=== PATIENT | male | born 1965 | race Caucasian/White ===

== ENCOUNTER → 2017-03-07 | Outpatient (CLI) | payer OTHER ==
[~2017-03-07] MED LIST: ANUSOL HC 25MG25 MG PR; ASPIRIN 325MG325 MG PO; ATORVASTATIN CA40 MG PO; CLOPIDOGREL75 M2 PO; EFFIENT10 M2 PO; ENDOCET 325 MG-1 TAB PO; GOLYTELY1 PDR PO; JANUVIA50 MG PO; LOSARTAN POTASS1 TAB PO; METFORMIN HYDR750 MG PO; METFORMIN500 MG PO; METOPROLOL SUCC25 M2 PO; SUBOXONE 8 MG-21 FIL SL; TOUJEO300 U/ML SC; TRAMADOL 50MG T1 PAK PO
== END ==
LOC: RT 07:45
DX: R55 Syncope and collapse (principal)

== ENCOUNTER → 2017-03-20 | Outpatient (CLI) | payer OTHER | LOC: RT 12:07 | DX: R00.2 Palpitations (principal); Z86.79 Personal history of other diseases of the circulatory system; Z98.890 Other specified postprocedural states ==

== ENCOUNTER 2017-04-17 07:34 | Day surgery (SDC) | payer OTHER ==
[~2017-04-17] VITALS: Ht 182.9 cm; Wt 95.3 kg
--- NOTE | 2017-04-17 08:50 | Operative Note ---
Upper GI Endoscopy Procedure date: 04/17/17 Date of : 65 Procedure:Upper GI Endoscopy Esophagogastroduodenoscopy with cold biopsies Indications: Mr. Freitas is a 51-year-old gentleman who is here for follow-up surveillance of his Ahn's esophagus. He has had Triny fundoplication twice. This was originally in January 2004 and then again in February 2008. He had upper endoscopy was surveillance and September 2010 and again in September 2014 and has a 6 cm segment of Ahn's esophagus. His reflux is well controlled with PPI therapy. He reports no heartburn, indigestion, bloating, belching, abdominal pain, dyspepsia or dysphagia. The patient has however had coronary artery disease and had coronary stents placed in November 2015 and August 2016. He also has had cardiac ablation and continues to have some intermittent flutter. He also reports some weakness and fatigue. He was unable to prep for his initial colonoscopy in September 2014 and has not had screening. Performing Provider: Beatriz Zhang MD Referring Provider: Ramakrishna Rajan M.D. Sedation: MAC sedation Procedure: Prior to the procedure, a history and physical exam was performed, and patients medications and allergies were reviewed. The risks and benefits of the procedure and the sedation options and risks were discussed with the patient. All questions were answered and informed consent was obtained. The patient was brought to the procedure room. Patient identification and proposed procedure were verified by the physician and the nurse. The patient was placed in a left lateral decubitus position and the scope was passed under direct vision. Throughout the procedure, the patient's blood pressure, pulse, and oxygen saturations were monitored continuously. The endoscope was introduced through the mouth, and advanced to the second part of duodenum. The upper GI endoscopy was accomplished without difficulty. The patient tolerated the procedure well. Findings: The scope was passed directly into the upper esophagus and advanced to the third portion of the duodenum. The post bulbar duodenum and duodenal bulb were normal with normal mucosa and conniventes. The scope was withdrawn through a normal duodenal bulb and pylorus into the stomach. The remainder of the antrum, body and fundus of the stomach were grossly normal. Upon retroflexion there was mostly intact Triny fundoplication with a very small recurrent 1-2 cm hiatal hernia. The endoscope was withdrawn into the esophagus. The diaphragmatic hiatus was at 38 cm, the gastroesophageal junction/top of the gastric folds was at 36- 37 cm. The top of the squamocolumnar junction was at 30 cm. The Ahn's [place] classification is C5M6. Narrowband imaging was utilized and there was no evidence of visible dysplasia or mucosal glandular deformity. Multiple biopsies were obtained. Immediate complications: None EBL (ml): 0 Impression: 1. Long segment Ahn's esophagusPrague classification C5M6 2. Mostly intact fundoplication with small recurrent 1-2 cm hiatal hernia Recommendations: I will follow up the biopsies and recommend repeat surveillance upper endoscopy again in 3-5 years. I would continue PPI therapy. I would recommend initial screening colonoscopy. at 0830
[2017-04-17 10:03] VITALS: BP 117/76
[2017-04-17 10:26] LABS: HEMOGLOBIN 13.7 g/dL (14.1-18.0); LYMPH # 1.5 K/mm3 (0.7-4.5); LYMPH % 28.9 % (10-50)
[2017-04-17 11:15] LABS: BUN 11 mg/dL (7-18)
[2017-04-17 11:25] LABS: GFR (ESTIMATED) 89 ML/MIN (>60)
[2017-04-18 08:40] LABS: Vitamin D, 25-Hydroxy 29.6 ng/mL (30.0-100.0)
[2017-04-18 09:42] LABS: Folate (Folic Acid) 17.9 ng/mL (>3.0)
== END 2017-04-17 09:55 | disposition home or self-care (01) ==
LOC: SDC 07:34
PROVIDERS: Internal Medicine Gastroenterology
PROC: 0DB58ZX Excision of Esophagus, Via Natural or Artificial Opening Endoscopic, Diagnostic (ICD-10-PCS; principal; 2017-04-17 08:30)
DX: K22.70 Barrett's esophagus without dysplasia (principal); K44.9 Diaphragmatic hernia without obstruction or gangrene

== ENCOUNTER 2017-05-20 18:39 | Emergency (ER) | payer OTHER ==
[~2017-05-20] VITALS: Ht 193 cm; Wt 98.0 kg
--- NOTE | 2017-05-20 18:45 | Emergency Room Report ---
History of Present Illness Time Seen by MD Taylor Comment The patient complains of tachycardia. He says he felt like he had an episode of supraventricular tachycardia that started about 45 minutes ago. He says symptoms are now gone except that he feels wiped out. No chest pain. No shortness of breath. He had some nausea. He feels very anxious. He says he has a history of supraventricular tachycardia, coronary artery disease, and anxiety. He has had ablation done in the spring of this year. He currently has a loop recorder that was placed by Dr. Brambila on 04/28/17. He says that it down loads every night at 1 AM while he is in bed. He also has a ansari chain monitor that he takes with him when he leaves the house and is supposed to get a recording if he has an episode. He says he has lost his ansari chain recorder and therefore did not have it with him. He is not sure whether this current episode will download tonight. He says he does not have complete understanding of how his loop recorder works. He requests medication for anxiety. He says that he has a history of addiction to pain medications and is on Suboxone, and likes to be upfront with that. ALLERGIES Coded Allergies: influenza virus vaccine, specific (08/09/16) Home Medications Active Scripts Prasugrel HCl (Effient) 10 MG PO DAILY #30 TAB Prov: 08/09/16 Reported Medications INSULIN GLARGINE,HUM.REC.ANLOG (Joshua Odell) 30 UNITS SC DAILY #4 ASPIRIN (Aspirin 325MG) 162.5 MG PO DAILY BUPRENORPHINE HCL/NALOXONE HCL (Suboxone 8 MG-2 MG Sl Film) 1 FILM SL DAILY #75 LOSARTAN/HYDROCHLOROTHIAZIDE (Losartan-Hctz 50-12.5 MG Tab) 1 TAB PO DAILY #30 TAB Metoprolol Succinate 25 MG PO DAILY #30 History Medical History General CAD? No Angina: Yes TN: No Hypertension? Yes Hyperlipidemia? No CHF? No DVT? No PE? No COPD? No Asthma? No Anemia? No GERD? No Gastric ulcers? No GI Bleed? No Hernia? No Thyroid Problems? No Hypothyroidism? No CVA? No Seizures? No Diabetes? Yes Insulin Dependent: No Insulin Pump: No Home FSBS? Yes Renal Insuffiency? No End Stage Renal Disease? No UTI? No Stones? Yes BPH? No GB Disease: No Nephritic Syndrome? No Asplenia? No Hepatitis? No Sickle Cell Disease? No Arthritis? No Migraines? No Cataracts? No Glaucoma? No MRSA? No HIV? No TB? No Anxiety? Yes Depression? Yes Cancer? No More? No Immunization Hx DT/Tetanus 5-10 Years Ago Flu Refused Pneumonia Refuses Surgical Hx Previous Surgery?Y LITHOTRIPSY KNEE SURGERY X 2 HERNIA REPAIR KIDNEY STONES REMOVED NUMEROUS Family History Family Hx Diabetes Yes CAD Yes Hypertension Yes Hyperlipidemia No Cancer No TB No Social History Alcohol Alcohol: No Review of Systems All Other Systems Reviewed and Negative Respiratory denies shortness of breath Cardiovascular denies chest pain, palpitations Gastrointestinal nausea Psychiatric/Neurological anxiety Physical Exam Vital Signs Vital Signs Date Time Temp Pulse Resp B/P Pulse O2 O2 Flow FiO2 Ox Delivery Rate 05/20 1925 84 18 134/91 97 05/20 1920 18 05/20 1843 98.4 79 24 146/91 96 General Appearance no apparent distress Eye Exam - bilateral eye normal exam, bilateral eye PERRL, bilateral eye EOMI Ear, Nose, Throat hearing grossly normal, normal ENT inspection Neck normal inspection, non-tender, supple, full range of motion Respiratory Status Yes: trachea midline, chest symmetrical, non tender chest. No: respiratory distress. Lung Sounds bilateral: normal breath sounds, lungs clear. Cardiovascular normal exam, regular rate/rhythm, no peripheral edema, no gallop, no JVD, no murmur, no rub, normal peripheral pulses Peripheral Pulses Pulses normal Yes Gastrointestinal normal bowel sounds, normal exam, non tender, soft, no organomegaly Extremities non-tender, normal range of motion, normal inspection Neurologic alert, normal exam, oriented x 3 Mental status normal mood/affect Skin intact, normal color, warm/dry Medical Decision Making LABS/Meds/Orders Pt receiving controlled substance in ED? Yes Jesus was queried for this patient? Yes Comment [id number] rxs. all suboxone. Results/Orders Laboratory Tests 05/20/171841: Sodium 138, Potassium 3.4 L, Chloride 99, Carbon Dioxide 29, BUN 13, Creatinine 1.2, Estimated Creat Clear 101, Estimated GFR (MDRD) 64, Glucose 182 H, Calcium 9.6, Total Bilirubin 0.9, AST 21, ALT 35, Alkaline Phosphatase 118 H, Creatine Kinase 55, CK-MB (CK-2) Rel Index 1.3, CK and CKMB Interp 0.7, Troponin I < 0.02 , Total Protein 8.4 H, Albumin 4.9, Globulin 3.5 H, Albumin/Globulin Ratio 1.4 , WBC 5.4, RBC 5.20, Hgb 15.1, Hct 43.6, MCV 84.0, RDW 12.6, Plt Count 151, MPV 8.3, Gran % 51.9, Gran # 2.8, Lymphocytes % 37.4, Monocytes % 7.4, Eosinophils % 2.3, Basophils % 1.0, Lymphocytes # 2.0, Monocytes # 0.4, Eosinophils # 0.1, Basophils # 0.1, PUBS MCHC 34.6, MCH 29.0 Current Medication Orders Sig/Sade Start time Last Medication Dose Route Stop Time Status Admin Lorazepam 0 .STK-MED ONE 05/20 1917 DC .ROUTE Lorazepam 1 MG ONCE ONE 05/20 1915 DC 05/20 IV 05/20 Sodium Chloride 10 ML PRN PRN 05/20 1845 AC IV 05/21 1842 Orders Procedure Date/time Status ELECTROCARDIOGRAM REQUEST 05/20 1842 Active CHEST-PORTABLE 05/20 1842 Active IV SALINE LOCK 05/20 1842 Active VERTICAL BORING MILL OPERATOR 05/20 1842 Active CBC WITH AUTO DIFF 05/20 1842 Complete CARDIAC ENZYMES 05/20 1842 Complete CHEM 12 PROFILE 05/20 1842 Complete CM/EKG CM/EKG Comments EKG interpreted by Pernell Beltrán MD: Rhythm: sinus Rate: 77 [place]: RIGHT montoya Ectopy: none Conduction: normal ST Segment Changes: none T Wave Changes: none Q Waves: none No evidence of acute ischemia or injury Prior electrocardiagrams reviewed. No change from prior tracings. XRAY/CT/US XRAY/CT/US XRAY chest Comment Chest x-ray interpreted by Pernell Beltrán M.D. No infiltrate, pneumothorax, pleural effusion, or wide mediastinum. Loop recorder present. Progress - 7:15 PM: Case discussed with Dr. Brambila. He informs that the patient report will download his event from today at 1 AM. If the rate was fast enough Dr. Brambila will get a call shortly after that. He states that the patient can see him in his office at 8:30 AM on Monday or Monday and they can interrogate the loop recorder. Departure Departure Disposition DC Home or Self Care(routine) Clinical Impression Primary Impression: Tachycardia Secondary Impressions: Anxiety state Condition STABLE Referrals Ramakrishna Rajan MD (Family) Patient Instructions DI for Anxiety -- Adult, DI for Tachycardia Additional Instructions See Dr. Brambila at 8:30 AM on Monday or Monday to have your loop recorder interrogated. Call Dr. Brambila for further problems. ED Critical Care Critical Care No at [id number]
[2017-05-20 18:55] LABS: LYMPH % 37.4 % (10-50)
--- OUTSIDE RECORDS SUMMARY | 2017-05-20 19:18 | External Medical Summary Rpt | CCD ---
Author Author , WENDY NGUYEN Address Unknown Phone [email or web address] Purpose Continuity of Care Document - 08-22-2016 through 2016 Problems Code Diagnosis DOS Provider Status Z95.5 PRESENCE OF 08-22-2016 CORONARY ANGIOPLASTY IMPLANT AND GRAFT I47.1 SUPRAVENTRI CULAR TACHYCARDIA K13.79 OTHER LESIONS OF ORAL MUCOSA N23 UNSPECIFIED RENAL COLIC R07.9 CHEST PAIN, UNSPECIFIED T88.7XXA UNSP ADVERSE EFFECT OF DRUG OR MEDICAMENT, INIT ENCNTR Results Labs Lab Lab Date Result Refere Interp Status Commen Order Detail nces retati t Range on CBC w auto diff (04-17-2017 10:03) Automat 2 = 0.1 0-0.2 complet ed 017 K/MM3 ed blood 10:03 basophi l count (count/ vo Baso % = 0.9 % 0.1-2.0 complet 017 ed 10:03 Automat 2 = 0.1 0.0-0.4 complet ed 017 K/mm3 ed blood 10:03 eosinop hil count Automat = 2.7 % 0.1-12. complet ed 017 0 ed blood 10:03 eosinop hils/10 0 leukocy t Blood = 3.0 1.3-8.0 complet granulo 017 K/mm3 ed cytes 10:03 automat ed count (numb Granulo = 59.3 37.0-80 complet cyte 017 % .0 ed percent 10:03 age Blood = 41.1 42.0-52 complet hematoc 017 % .0 ed rit 10:03 (volume fractio n) Blood = 13.7 14.1-18 complet hemoglo 017 g/dL .0 ed bin 10:03 measure ment (mass/v olum Absolut = 1.5 0.7-4.5 complet e 017 K/mm3 ed lymphoc 10:03 yte count Lymphoc = 28.9 10-50 complet yte 017 % ed count, 10:03 blood, automat ed Mean = 28.5 27-31.2 complet corpusc 017 pg ed ular 10:03 hemoglo bin (MCH) determ Automat = 33.3 31.8-35 complet ed 017 g/dl .4 ed erythro 10:03 cyte mean corpusc ular h Automat = 85.4 82.2-97 complet ed 017 fl .8 ed erythro 10:03 cyte mean corpusc ular v Absolut = 0.4 0.1-1.0 complet e 017 K/mm3 ed monocyt 10:03 e count Loup % = 8.2 % 1.7-9.3 complet 017 ed 10:03 Automat = 8.0 7.4-10. complet ed 017 fl 4 ed blood 10:03 platele t mean volume scottie Blood = 155 142-424 complet platele 017 K/mm3 ed t count 10:03 Red = 4.81 4.6-6.2 complet blood 017 M/mm3 ed cell 10:03 count Automat = 12.9 11.5-17 complet ed 017 % .5 ed erythro 10:03 cyte distrib ution width Blood = 5.1 4.8-10. complet leukocy 017 K/MM3 8 ed edmundo 10:03 count (number /volume ) Comprehensive metabolic panel (04-17-2017 10:03) Serum 04-17-2 = 1.4 1.1-1.8 complet or 017 ed plasma 10:03 albumin /globul in mass ra Serum = 4.1 3.4-5.0 complet or 017 gm/dL ed plasma 10:03 albumin measure ment (mas Serum = 97 46-116 complet or 017 U/L ed plasma 10:03 alkalin e phospha tase scottie Serum = 0.6 0.2-1.0 complet or 017 mg/dL ed plasma 10:03 total bilirub in measure m Serum 2 = 11 7-18 complet or 017 mg/dL ed plasma 10:03 urea nitroge n measure men Serum = 9.0 8.5-10. complet or 017 mg/dL 1 ed plasma 10:03 calcium measure ment (mas Serum = 102 98-107 complet or 017 mmoL/L ed plasma 10:03 chlorid e measure ment (mo Carbon = 29 21.0-32 complet dioxide 017 mmoL/L .0 ed 10:03 measure ment Serum 2 = 0.9 0.70-1. complet or 017 mg/dL 30 ed plasma 10:03 creatin ine measure ment ( Estimat = 89 >60 complet ed 017 ML/MIN ed glomeru 10:03 lar filtrat ion rate (GF Comment: REFERENCE RANGE: >60 ML/MIN/1.73 SQUARE METERS Comment: If this patient is -[place], then multiply the Comment: result by 1.210. Serum = 2.9 1.3-3.2 complet globuli 017 gm/dL ed n 10:03 measure ment (mass/v olume) Serum = 240 74-106 complet or 017 mg/dL ed plasma 10:03 glucose measure ment (mas Serum = 4.1 3.5-5.1 complet potassi 017 mmoL/L ed um 10:03 measure ment Serum = 138 136-145 complet sodium 017 mmoL/L ed measure 10:03 ment Serum = 16 15-37 complet or 017 U/L ed plasma 10:03 asparta te aminotr ansfera ALT = 31 12-78 complet (SGPT) 017 U/L ed ser/miguel 10:03 s Protein = 7.0 6.4-8.2 complet total 017 gm/dL ed ser/miguel 10:03 s Serum or plasma ferritin measurement (ma (04-17-2017 10:03) Serum 2 = 558 8-388 complet or 017 ng/mL ed plasma 10:03 ferriti n measure ment (ma Serum or plasma 25-hydroxyvitamin D avelino (04-17-2017 10:03) Serum 1030-2 = 29.6 30.0-10 complet or 017 ng/mL 0.0 ed plasma 10:03 25-hydr oxyvita min D avelino Comment: Vitamin D deficiency has been defined by the [place] of Comment: Medicine and an Endocrine Society practice guideline as a Comment: level of serum 25-OH vitamin D less than 20 ng/mL (1,2). Comment: The Endocrine Society went on to further define vitamin D Comment: insufficiency as a level between 21 and 29 ng/mL (2). Comment: 1. IOM ([place] of Medicine). 2010. Dietary reference Comment: intakes for calcium and D. Chávez [place]: The Comment: National [employer]. Comment: 2. Tucker MF, Júnior NC, Dannie PINZON, et al. Comment: Evaluation, treatment, and prevention of vitamin D Comment: deficiency: an Endocrine Society clinical practice Comment: guideline. JCEM. 2010; 96(7):1911-30. Comment: Performed at: [facility] Comment: [address] [place], [place] [id number] Comment: Knapsack Sprayer: Yvan Mejia PhD, Phone: [phone] Thiamine WB (04-17-2017 10:03) Thiamin 2 = 117 complet e WB 017 ed 10:03 Comment: RANGE 66.5-200.0 nmol/L Serum or plasma folate measurement (mass (04-17-2017 10:03) Serum 04-17-2 = 17.9 >3.0 complet or 017 ng/mL ed plasma 10:03 folate measure ment (mass Comment: Comment: A serum folate concentration of less than 3.1 ng/mL is Comment: considered to represent clinical deficiency. Comment: Performed at: [facility] Comment: [address] [place], [place] [id number] Comment: Knapsack Sprayer: Yvan Mejia PhD, Phone: [phone] Iron and TIBC (04-17-2017 10:03) Serum 04-17-2 = 24 % 15-55 complet or 017 ed plasma 10:03 iron saturat ion measure m Iron, 2 = 80 38-169 complet serum 017 ug/dL ed 10:03 Unsatur 2 = 255 111-343 complet ated 017 ug/dL ed iron 10:03 binding capacit y measur Serum 04-17-2 = 335 250-450 complet or 017 ug/dL ed plasma 10:03 iron binding capacit y me Vitamin B12 ser/plas (04-17-2017 10:03) Vitamin -2 = 514 211-946 complet B12 017 pg/mL ed ser/miguel 10:03 s Comment: Performed at: [facility] Comment: [address], [place] [id number] Comment: Knapsack Sprayer: Yvan Mejia PhD, Phone: [phone] Glucose capillary blood glucometer (04-17-2017 07:59) Glucose = 215 70-110 complet 017 mg/dl ed capilla 07:[address]
--- OUTSIDE RECORDS SUMMARY | 2017-05-20 19:18 | External Medical Summary Rpt | CCD ---
Author Author , WENDY NGUYEN Address Unknown Phone [email or web address] Purpose Continuity of Care Document - 08-22-2016 [...] 017 K/mm3 ed monocyt 10:03 e count [place] % = 8.2 % 1.7-9.3 complet 017 [...] SQUARE METERS Comment: If this patient is -[place], then multiply the Comment: result by 1.210. [...] D deficiency has been defined by the [place] of Comment: Medicine and an Endocrine Society practice guideline as a Comment: level of serum 25-OH vitamin D less than 20 ng/mL (1,2). Comment: The Endocrine Society went on to further define vitamin D Comment: insufficiency as a level between 21 and 29 ng/mL (2). Comment: 1. IOM ([place] of Medicine). 2010. Dietary reference Comment: intakes for calcium and D. [place]: The Comment: National [employer]. Comment: 2. Tucker MF, Júnior NC, Dannie PINZON, et al. Comment: Evaluation, treatment, and prevention of vitamin D Comment: deficiency: an Endocrine Society clinical practice Comment: guideline. JCEM. 2010; 96(7):1911-30. Comment: Performed at: [facility] Comment: [address] [place], [place] [id number] Comment: Vending Machine Coin Collector: Yvan Mejia PhD, Phone: [phone] Thiamine WB (04-17-2017 10:03) Thiamin 2 = 117 complet e WB 017 ed 10:03 Comment: RANGE 66.5-200.0 nmol/L Serum or plasma folate measurement (mass (04-17-2017 10:03) Serum 04-17-2 = 17.9 >3.0 complet or 017 ng/mL ed plasma 10:03 folate measure ment (mass Comment: Comment: A serum folate concentration of less than 3.1 ng/mL is Comment: considered to represent clinical deficiency. Comment: Performed at: [facility] Comment: [address], [place] [id number] Comment: Vending Machine Coin Collector: Yvan Mejia PhD, Phone: [phone] Iron and TIBC (04-17-2017 10:03) Serum 04-17-2 [...] ed ser/miguel 10:03 s Comment: Performed at: [facility] Comment: [address], [place] [id number] Comment: Vending Machine Coin Collector: Yvan Mejia PhD, Phone: [phone] Glucose capillary blood glucometer (04-17-2017 07:59) Glucose = 215 70-110 complet 017 mg/dl ed capilla 07:[address]
[2017-05-20 19:19] LABS: BUN 13 mg/dL (7-18)
--- OUTSIDE RECORDS SUMMARY | 2017-05-20 19:19 | External Medical Summary Rpt | CCD ---
Demographics Preferred Language [place]ese Marital Status Unknown Tenriism Affiliation Unknown Race Unknown Ethnic Group Unknown Author Author , WENDY NGUYEN Address Unknown Phone Immunization Unable to retrieve immunization data due to connection failure with Immunization Registry. Please try again later.
--- OUTSIDE RECORDS SUMMARY | 2017-05-20 19:19 | External Medical Summary Rpt | CCD ---
Author Author [employer] Organization [employer] Address Unknown Phone Unavailable Purpose Continuity of Care Document - through 2016
--- OUTSIDE RECORDS SUMMARY | 2017-05-20 19:19 | External Medical Summary Rpt | CCD ---
Demographics Preferred Language Bangladeshi Marital Status Unknown Christianity Affiliation Unknown Race Unknown Ethnic Group Unknown Author Author , WENDY NGUYEN Address Unknown Phone Immunization Unable to retrieve immunization data due to connection failure with Immunization Registry. Please try again later.
[2017-05-20 19:20] LABS: GFR (ESTIMATED) 64 ML/MIN (>60)
[2017-05-20 19:35] LABS: HEMOGLOBIN 15.1 g/dL (14.1-18.0)
[2017-05-20 19:44] VITALS: BP 135/87
--- NOTE | 2017-05-21 11:14 | RADIOLOGY REPORT PS360 ---
CHEST-PORTABLE Ordering physician: Pernell Beltrán MD Age: 51 years Male INDICATION: chest symptomsCHEST TIGHTNESS. Chest pain history of ablation in 2 stents. Nonsmoker. PROCEDURE: AP upright portable CXR CHEST-PORTABLE FINDINGS: No significant change in appearance the lungs since 08/08/2016 lungs appear clear with nothing definitely acute . A loop recorder device now evident projected over the left heart on this AP view. No pneumothorax. No pleural effusion. Heart normal size. Normal pulmonary vascularity. Hilar and mediastinal structures appear satisfactory. Chest wall unremarkable.. IMPRESSION ----- Lungs clear Nothing definitely acute
== END 2017-05-20 19:54 | disposition home or self-care (01) ==
LOC: ER 18:39
PROVIDERS: Emergency Medicine
DX: R00.0 Tachycardia, unspecified (principal); F41.9 Anxiety disorder, unspecified; E11.9 Type 2 diabetes mellitus without complications; I10 Essential (primary) hypertension; Z79.82 Long term (current) use of aspirin; Z79.4 Long term (current) use of insulin; Z79.899 Other long term (current) drug therapy